=== PATIENT | male | born 1985 | race Caucasian/White ===

== ENCOUNTER 2019-05-29 18:56 | Emergency (ER) | payer OTHER ==
[~2019-05-29] VITALS: Ht 185.4 cm; Wt 110.7 kg
[~2019-05-29 18:56] MED LIST: CEPH-443 PO; SULF1TAB31 PO
[2019-05-29 19:00] VITALS: BP 172/96; PULSE 100; RESP 16; Ht 185.4 cm; Wt 110.7 kg
== END 2019-05-29 19:41 | disposition home or self-care (01) ==
LOC: E/R 18:56
DX: L03.119 Cellulitis of unspecified part of limb (principal)
CPT/HCPCS: 99283